=== PATIENT | male | born 1995 | race American Indian/Alaskan Native ===

== ENCOUNTER 2018-09-19 22:30 | Emergency (ER) | payer OTHER ==
--- NOTE | 2018-09-20 04:14 | Emergency Department Report ---
ED Eye Problem HPI - General Chief complaint: Eye Problems Stated complaint: EYE PAIN Time Seen by Provider: 09/20/18 03:24 Source: patient Mode of arrival: Ambulatory Limitations: No Limitations - History of Present Illness Initial comments: Pt is a 22 yo male who presents to the ED with c/o edema and erythema to the right lower eyelid that began two days ago. he states he has had purulent drainage. The patient states he has erythema of the eye, irritation of the eye, and eyelash matting. He denies any vision changes. He denies anything getting in the eye. He denies any sick contacts. He states he has never had previously. He denies any contact use. - Related Data Previous Rx's Medication Instructions Recorded Last Taken Type Famotidine [Pepcid] 10 mg PO BID #28 tablet 07/25/13 Unknown Rx Promethazine [Phenergan] 25 mg PO Q6H PRN #12 tablet 07/25/13 Unknown Rx Bacitracin [Bacitracin Ophth] 0.5 inch OD TID #3.5 oint...g. 09/20/18 Unknown Rx Allergies Allergy/AdvReac Type Severity Reaction Status Date / Time NSAIDS (Non-Steroidal Allergy Shortness Verified 09/19/18 22:51 Anti-Inflamma of Breath ED Review of Systems ROS: Stated complaint: EYE PAIN Other details as noted in HPI Comment: All other systems reviewed and negative ED Past Medical Hx - Past Medical History Hx GERD: Yes Additional medical history: bronchitis - Social History Smoking Status: Never Smoker Substance Use Type: None - Medications Home Medications: Home Medications Medication Instructions Recorded Confirmed Last Taken Type Famotidine [Pepcid] 10 mg PO BID #28 tablet 07/25/13 Unknown Rx Promethazine [Phenergan] 25 mg PO Q6H PRN #12 tablet 07/25/13 Unknown Rx Bacitracin [Bacitracin Ophth] 0.5 inch OD TID #3.5 oint...g. 09/20/18 Unknown Rx ED Physical Exam - General Limitations: No Limitations General appearance: alert, in no apparent distress - Head Head exam: Present: atraumatic, normocephalic - Eye Eye exam: Present: PERRL, EOMI, other (small area of erythema and edema in the nasolacrimal duct of the right eye, no obvious drainage present). Absent: scleral icterus, conjunctival injection, nystagmus, periorbital swelling, periorbital tenderness - ENT ENT exam: Present: mucous membranes moist - Respiratory Respiratory exam: Present: normal lung sounds bilaterally. Absent: respiratory distress, wheezes, rales, rhonchi, stridor, chest wall tenderness, accessory muscle use, decreased breath sounds, prolonged expiratory - Cardiovascular Cardiovascular Exam: Present: regular rate, normal rhythm, normal heart sounds. Absent: systolic murmur, diastolic murmur, rubs, gallop - Neurological Exam Neurological exam: Present: alert, oriented X3 - Psychiatric Psychiatric exam: Present: normal affect, normal mood - Skin Skin exam: Present: warm, dry, intact ED Course Vital Signs 09/19/18 22:52 Temperature 97.8 F Pulse Rate 75 Respiratory 18 Rate Blood Pressure 108/57 O2 Sat by Pulse 100 Oximetry ED Medical Decision Making - Medical Decision Making Pt is a 22 yo male who presents to the ED with c/o edema and erythema to the right lower eyelid that began two days ago. he states he has had purulent drainage. The patient states he has erythema of the eye, irritation of the eye, and eyelash matting. He denies any vision changes. He denies anything getting in the eye. He denies any sick contacts. He states he has never had previously. He denies any contact use. VSS. examination consistent with dacryocystitis. will place pt on abx ointment. Discussed to use medication as prescribed. Advised to follow up with ophthalmology in the next 2-3 days. Use warm compresses to the area. Return to the emergency room for any new or worsening symptoms. - Differential Diagnosis conjunctivitis, dacryocystitis, chalazion, hordeolum Critical care attestation.: If time is entered above; I have spent that time in minutes in the direct care of this critically ill patient, excluding procedure time. ED Disposition Clinical Impression: Dacrocystitis Qualifiers: Laterality: right Qualified Code(s): H04.301 - Unspecified dacryocystitis of right lacrimal passage Disposition: - TO HOME OR SELFCARE Is pt being admited?: No Does the pt Need Aspirin: No Condition: Stable Instructions: Blocked Tear Duct (ED) Additional Instructions: Please use medication as prescribed. Follow up with ophthalmology in the next 2- 3 days. Use warm compresses to the area. Return to the emergency room for any new or worsening symptoms. Prescriptions: Bacitracin [Bacitracin Ophth] 0.5 inch OD TID #3.5 oint...g. Referrals: [facility] [Other] - 2-3 Days MAIN PATEL MD [Staff Physician] - 2-3 Days Time of Disposition: 04:20 Print Language: CZECH
[2018-09-20 04:38] VITALS: BP 115/53
== END 2018-09-20 04:38 | disposition home or self-care (01) ==
LOC: ED 22:30
DX: H04.301 Unspecified dacryocystitis of right lacrimal passage (principal); K21.9 Gastro-esophageal reflux disease without esophagitis; Z79.899 Other long term (current) drug therapy
CPT/HCPCS: 99281